=== PATIENT | female | born 1985 | race Two or more races ===

== ENCOUNTER 2017-03-04 17:52 | Emergency (ER) | payer OTHER, SELFPAY ==
[~2017-03-04] VITALS: Ht 165.1 cm; Wt 84.1 kg
[2017-03-04 19:09] LABS: HEMATOCRIT 34.5 % (34.6-47.8); HEMOGLOBIN 11.4 g/dL (11.7-16.4)
[2017-03-04 19:13] LABS: ASPARTATE AMINO TRANSFERASE 7 U/L (15-37); BLOOD UREA NITROGEN 56 mg/dL (7-18)
[2017-03-04 19:18] LABS: IS PT STATUS REG ER OR PRE ER? YES
[2017-03-04] MEDS ORDERED: LABETALOL 200 MG TABLET PO ONE (19:30)
[2017-03-04] MEDS ORDERED: LOSARTAN 50MG TABLET PO ONE (19:30)
[2017-03-04 20:48] VITALS: BP 151/99
== END 2017-03-04 21:19 | disposition home or self-care (01) ==
LOC: ED 21:00
DX: S90.31XA Contusion of right foot, initial encounter (principal); G89.11 Acute pain due to trauma; I12.9 Hypertensive chronic kidney disease with stage 1 through stage 4 chronic kidney disease, or unspecified chronic kidney disease; N18.9 Chronic kidney disease, unspecified; Z94.0 Kidney transplant status; X50.1XXA Overexertion from prolonged static or awkward postures, initial encounter; Y93.89 Activity, other specified; Y92.488 Other paved roadways as the place of occurrence of the external cause; Y99.8 Other external cause status
CPT/HCPCS: 36415; 80053; 84484; 85025; 99285